=== PATIENT | male | born 1955 | race Caucasian/White ===

== ENCOUNTER → 2018-12-15 07:43 | Outpatient (CLI) | payer OTHER, SELFPAY ==
--- NOTE | 2018-12-15 07:47 | CA_ITS ---
PROCEDURE: 2-D M-mode and color Doppler study INDICATIONS FOR THE TEST: Chest pain COPD Heart Murmur Tobacco Smoking Palpitations Fatigue Syncope Edema Hypertension+Diabetes Mellitus+ Rheumatic Fever SOB+APARICIO+Obesity+Hyperlipidemia Family History HD Additional History abn EKG, Bradycardia, AV block PATIENT INFORMATION HEIGHT: 71 WEIGHT: 288 GENDER: Male B/P: 137/45 2-D/M-MODE INTERPRETATION: 2-D MEASUREMENTS OBSERVED VALUES IN CMS Right Ventricular Dimension (RVDd) 2.1 Interventricular Septum (Thickness)(IVsd) 1.0 Left Ventricular Internal Dimensions(LVIDd) 5.7 Left Ventricular Posterior Wall (Thickness)(LVPWd) 1.0 Aortic Root 3.6 Aortic Cusp Separation 2.8 Left Atrial Dimensions (LAD) 4.1 2D 1. Left atrium is mildly enlarged, left ventricle is normal size, there is no concentric left ventricular hypertrophy, visually estimated ejection fraction 55% with no regional wall motion abnormality. 2. The right atrium and right ventricle are normal size and contractility. 3. The aortic valve is minimally thickened and fibrosed. 4. The mitral and tricuspid valve leaflets are minimally thickened. 5. The pulmonic valve is poorly visualized. 6. No significant pericardial effusion noted. DOPPLER INTERROGATION: Doppler interrogation of the aortic, mitral and tricuspid valvular presence of mild mitral and tricuspid regurgitation, tricuspid regurgitation jet velocity is inadequate for calculation of the right ventricular systolic pressure, diastolic parameters are inconclusive. CONCLUSION: 1. Mildly enlarged left atrium, normal left ventricular size, visually estimated ejection fraction 55% with no regional wall motion abnormality, diastolic parameters are inconclusive. 2. Mild mitral and tricuspid regurgitation 3. No significant pericardial effusion noted.
--- NOTE | 2018-12-15 08:42 | NM_ITS ---
CARDIOLITE SPECT MYOCARDIAL PERFUSION LEXISCAN, REST AND STRESS: History: Hypertension, diabetes, hyperlipidemia, family history, shortness of breath, abnormal EKG. Procedure: Patient received a 0.4 mg of intravenous Lexiscan, resting heart rate was 47 bpm resting blood pressure 137/55, with Lexiscan maximum heart rate achieved was 85 bpm which is less than 85% of the maximum] heart rate and a blood pressure was 130/58. With Lexiscan patient complained of chest pain Electrocardiogram: Resting electrocardiogram showed sinus bradycardia premature ventricular complex, with Lexiscan there is less than 1.[address] segment depression noted from the baseline EKG. Nonspecific T wave changes were also seen. The EKG portion of the Lexiscan Myoview is nondiagnostic. Cardiac stress and resting SPECT images: Cardiac stress and resting SPECT images were obtained using technetium 99 Myoview 31.5 mCi stress and 10.7 mCi at rest. Gated SPECT further analysis of segmental wall motion and calculation of the ejection fraction also done. Cardiac stress and resting SPECT images show decreased tracer activity in the posterobasal wall which improves on the resting images is suggestive of reversible ischemia, computer derived ejection fraction 55% with no regional wall motion abnormality, right ventricle is normal size and contractility. Conclusion: 1. The EKG portion of the Lexiscan Myoview is nondiagnostic. 2. Scintigraphic evidence of mild reversible ischemia involving Inferior and posterobasal wall. Computer derived ejection fraction is 55% with no regional wall motion abnormality, right ventricle is normal size and contractility. 3. Abnormal Lexiscan Myoview study.
--- NOTE | 2018-12-15 08:43 | HMH.ITSHM ---
Current Home Medications as stated by this patient Clarence Marquis or sales representative consultant. []AMLODIPINE ATORVASTATIN CARVEDILOL HYDROCHLOROTHIAZIDE LISNIOPRIL METFORMIN
== END ==
PROVIDERS: PCP Physician Assistant Medical; Visit Provider Internal Medicine Cardiovascular Disease
DX: R06.02 Shortness of breath (principal); R94.31 Abnormal electrocardiogram [ECG] [EKG]; E11.9 Type 2 diabetes mellitus without complications; I10 Essential (primary) hypertension; I44.0 Atrioventricular block, first degree; R00.1 Bradycardia, unspecified; R42 Dizziness and giddiness; Z79.84 Long term (current) use of oral hypoglycemic drugs
CPT/HCPCS: 78452; 93017; 93306; A9502; J2785

== ENCOUNTER → 2018-12-15 07:47 | Outpatient (CLI) | payer SELFPAY ==
--- NOTE | 2018-12-15 07:48 | CT_ITS ---
CT heart w calcium score INDICATION: Family history of coronary artery disease ITS.REASON: C ORDERING PHYSICIAN: Khanh Landers MD PATIENT AGE: 63 years COMPARISON: None TECHNIQUE: Contrast Used:None Oral Contrast: None Axial images were obtained. Sagittal and coronal reformatted images are reviewed as well. All CT scans at the facility use one or more dose reduction, viz: automated exposure control, ma/kV adjustment per patient size (including targeted exams where dose is matched to indication, i.e. head), or iterative reconstruction technique. FINDINGS: The coronary artery calcium score is 182 indicating moderate plaque With high cardiovascular disease risk IMPRESSION: Coronary artery calcium score of 182
== END ==
PROVIDERS: PCP Physician Assistant Medical; Visit Provider Internal Medicine Cardiovascular Disease
DX: R06.02 Shortness of breath (principal)
CPT/HCPCS: 75571